=== PATIENT | male | born 1980 | race Caucasian/White ===

== ENCOUNTER 2017-02-10 12:47 | Emergency (ER) | payer OTHER ==
[~2017-02-10] VITALS: Ht 182.9 cm; Wt 83.9 kg
[2017-02-10 12:47] VITALS: BP 141/93
== END 2017-02-10 13:23 | disposition home or self-care (01) ==
LOC: ER 12:49
DX: F32.9 Major depressive disorder, single episode, unspecified (principal); F90.9 Attention-deficit hyperactivity disorder, unspecified type; Z79.899 Other long term (current) drug therapy
CPT/HCPCS: A4606; Z7502; Z7610

== ENCOUNTER 2017-03-03 10:26 | Emergency (ER) | payer OTHER ==
[~2017-03-03] VITALS: Ht 182.9 cm; Wt 83.9 kg
[2017-03-03 10:49] VITALS: BP 159/93
== END 2017-03-03 12:35 | disposition home or self-care (01) ==
LOC: ER 10:27
DX: Z76.0 Encounter for issue of repeat prescription (principal); F32.9 Major depressive disorder, single episode, unspecified; F90.9 Attention-deficit hyperactivity disorder, unspecified type
CPT/HCPCS: 99283; A4606; Z7610